=== PATIENT | female | born 1985 | race African-American/Black ===

== ENCOUNTER 2023-07-21 10:47 | Outpatient (CLI) | payer OTHER, SELFPAY ==
--- NOTE | ~2023-07-21 | MMUS_ITS ---
EXAMINATION: MM diagnostic demetria BI w cynthia, US breast BI complete HISTORY: Referring provider palpated a left lateral breast mass. Patient complains of discomfort in t hat area. Left clear to milky nipple discharge. TECHNIQUE: ML, MLO and CC 3-D tomosynthesis images of both breasts were performed and synthetic 2-D i mages were generated. CAD analysis was submitted and interpreted. High resolution complete bilateral breast ultrasound examination including all 4 quadrants and subareolar areas was performed. COMPARISON: None BREAST PARENCHYMAL COMPOSITION: The breasts are extremely dense, which lowers the sensitivity of mamm ography. FINDINGS: MAMMOGRAPHIC FINDINGS: No suspicious mass, architectural distortion, malignant calcification, skin thickening or retraction of either breast is detected. The extremely dense breast tissue may obscure masses. Complete bilateral breast ultrasound examinatio n was performed. ULTRASOUND: Several right to left breast cysts are identified, measuring up to 6.5 mm on the right at 12:00 6 cm from the nipple and up to 6.8 mm on the left 5:00 5 cm from the nipple. No suspicious mass or shadowing of either breast is detected.. IMPRESSION: 1. Benign findings 2. Routine annual mammographic screening is recommended, with supplemental ultrasound as clinically a ppropriate considering the extremely dense stroma BI-RADS Category 2: Benign finding(s). Reviewed, dictated and finalized at location A. IMPRESSION: 1. Benign findings 2. Routine annual mammographic screening is recommended, with supplemental ultr asound as clinically appropriate considering the extremely dense stroma BI-RADS Category 2: Benign finding(s).
== END 2023-07-21 10:48 | disposition home or self-care (01) ==
PROVIDERS: PCP Physician Assistant; Visit Provider Nurse Practitioner
DX: N63.0 Unspecified lump in unspecified breast (principal)
CPT/HCPCS: 76641; 77062; 77066; G0279

== ENCOUNTER 2023-08-11 09:00 | Outpatient (CLI) | payer OTHER, SELFPAY ==
--- NOTE | ~2023-08-11 | MR_ITS ---
MR breast BI wo/w con 08/11/2023 13:59 CDT INDICATION: Bilateral dense breasts. Left breast mass. Family history of breast cancer. Recent diagno stic mammogram and ultrasound demonstrating benign findings. TECHNIQUE: MRI of the breasts perform using standard protocol pre-and post IV contrast with the follo wing sequences: Axial T2 STIR, axial T1, axial vibrant T1 with fat suppression precontrast and multip hasic postcontrast. 12 cc MultiHance administered intravenously. COMPARISON: Diagnostic mammogram and ultrasound dated 07/21/2023 FINDINGS: There are no abnormalities on the precontrast sequences. There is minimal background parenc hymal enhancement. No enhancing lesions following contrast administration. No areas of enhancement meeting threshold criteria on CAD analysis. No evidence of signal abnormalities in the axillary or i nternal mammary node distributions. LEFT BREAST: No signal abnormalities on precontrast sequences. There is minimal background parenchym al enhancement. No enhancing lesions following contrast administration. No areas of enhancement me eting threshold criteria on CAD analysis. No evidence of signal abnormalities in the axillary or in ternal mammary node distributions.] IMPRESSION: 1: Right breast: Negative. No evidence of malignancy. BI-RADS category 1. Recommend annual mammo graphy follow-up. 2: Left breast: Negative. No evidence of malignancy. BI-RADS category 1. Recommend annual mammogr aphy follow-up. Follow-up MRI may be useful for supplementing mammographic evaluation as clinically indicated. Reviewed, dictated and finalized at location B. IMPRESSION: 1: Right breast: Negative. No evidence of malignancy. BI-RADS category 1. Recommend annual mammography follow-up. 2: Left breast: Negative. No evidence of malignancy. BI-RADS category 1. Re commend annual mammography follow-up. Follow-up MRI may be useful for supplementing mammographic evaluation as clinic ally indicated.
== END 2023-08-11 09:01 | disposition home or self-care (01) ==
PROVIDERS: Visit Provider Surgery
DX: R92.343 Mammographic extreme density, bilateral breasts (principal); Z80.3 Family history of malignant neoplasm of breast
CPT/HCPCS: 77049; A9577; C8908